=== PATIENT | female | born 1955 | race Caucasian/White ===

== ENCOUNTER 2025-04-16 06:14 | Day surgery (SDC) | payer MEDICARE, OTHER, SELFPAY ==
[2025-04-16] VITALS (7 sets, daily range): BP systolic 109–125; BP diastolic 61–81; BMI 19.3
[2025-04-16] MEDS: TYLENOL 1000 MG PO (07:24)
[2025-04-16] MEDS: CELEBREX 200 MG PO (07:24)
[2025-04-16] MEDS: NORMOSOL-R/PLASMALYTE-A 1000 IV (07:31)
[2025-04-16] MEDS: ZOFRAN 4 MG IV (09:26)
== END 2025-04-16 10:40 | disposition home or self-care (01) ==
LOC: SDS 06:14
PROVIDERS: ATTENDING PHYSICIAN Specialist; FAMILY PHYSICIAN Internal Medicine
DX: M75.41 Impingement syndrome of right shoulder (principal)
CPT/HCPCS: 29823; 29826